=== PATIENT | male | born 1990 | race Caucasian/White ===

== ENCOUNTER 2024-10-13 21:44 | Emergency (ER) | payer SELFPAY ==
[2024-10-13 21:46] VITALS: BP 131/84
[2024-10-13 22:03] LABS: Urine Albumin Trace (Neg - Trace); Urine Bilirubin Negative (Negative); Urine Character Clear (Clear); Urine Color Yellow; Urine Glucose Negative (Negative); Urine Ketone Trace (Negative); Urine Leukocyte Trace (Negative); Urine Nitrite Negative (Negative); Urine Occult Blood Negative (Negative); Urine Specific Gravity 1.025 (<1.030); Urine Urobilinogen Negative (Neg - 1+)
[2024-10-13 22:12] LABS: Urine Red Blood Cell 0-2 /HPF (0-2); Urine Squamous Cell 0-2 /LPF (Few); Urine White Cell 16-20 /HPF (0-5)
--- NOTE | 2024-10-13 23:19 | ED.GENMED ---
History of Present Illness
General
Chief Complaint: Male Genito-Urinary Symptoms
Source: patient
Time Seen by Provider: 10/13/24 22:26
History of Present Illness
History of Present Illness:
34-year-old male presents the emergency room complaining of pain in his testicles. The pain is bilateral. Began a couple hours ago. He is denies any dysuria or frequency. Denies any penile discharge. Patient thinks it is 'unlikely' that he
would be exposed to a sexually transmitted disease.
Past History
Past History
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
ED Past Surgical History: None
Social History
Tobacco: Smoker
Alcohol: Occasional
Drug: Marijuana
Personal: Single
Living: with family
Employment: Employed
Family History
Family History: Other (Noncontributory)
Phy Exam
Physical Exam
Physical Exam:
General: Awake, Alert, Oriented X3. No acute distress.
Vitals: unremarkable
Head: Atraumatic
Eyes: Pupils equal, EOMI
Throat: Airway intact, no exudates
Neck: Trachea midline
Abd: Soft, Nontender, No pulsatile mass
Genitalia: Normal male genitalia. Testicles mildly tender bilaterally
Neuro: Nonfocal
Skin: Warm, dry, no rash
Extremities: pulses equal b/l, no edema
Course
Orders/Labs/Results
Orders:
Orders
10/13/24 21:53
Urinalysis Reflex To Culture Urgent
Date Specimen was Collected: 10/13/24
Time Specimen was Collected: 21:50
Urine Microscopic Reflex Cult Urgent
Urine Culture Urgent
ARLIN Source: U
Specimen Description:
Date Specimen was Collected: 10/13/24
Time Specimen was Collected: 21:50
10/13/24 23:02
Add On- LAB Urgent
Tests Added?: urine gc/chlamydia pcr
10/13/24 23:03
Ceftriaxone Sodium [Rocephin] 500 mg IM NOW STA
Abnormal Lab Results
10/13/24
21:53
Urine Ketones Trace A
(Negative)
Leukocyte Esterase Rfl Trace A
(Negative)
Urine WBC (Reflex) 16-20 A /HPF
(0-5)
Vital Signs
Initial and Last Documented VS:
Initial Vital Signs
Temp Pulse Resp BP Pulse Ox
98.1 F 69 16 131/84 100
10/13/24 21:46 10/13/24 21:46 10/13/24 21:46 10/13/24 21:46 10/13/24 21:46
Last Documented Vital Signs
Temp Pulse Resp BP Pulse Ox
98.1 F 73 16 121/81 97
10/13/24 21:46 10/13/24 23:25 10/13/24 23:25 10/13/24 23:25 10/13/24 23:25
MDM/Problems Addressed
Differential Diagnosis Includes:
Epididymitis, orchitis, urinary tract infection
MDM/Problems Addressed:
Patient's urine is highly suggestive of a genitourinary infection. He denies penile discharge and thinks it is unlikely he has an STD. Will cover for both with a show to Rocephin here and a prescription for Levaquin for 10 days. GC chlamydia
added to urine and lab. Patient's physical exam is not at all consistent with torsion.
*Pulse Oximetry
Patient hypoxic: no
*Critical Care Note
Total Time (30-74mins, 75-104mins- exclusive of procedures): Not Applicable
ED Attending Note
-
Portions of this chart may have been created with voice recognition software.� Occasional wrong word or��sound alike� substitutions may have occurred due to the inherent limitations of voice recognition software.
Discharge Plan
Departure
Patient Disposition: Home (Routine Discharge)
Date of Disposition: 10/13/24
Time of Disposition: 23:19
Patient with high blood pressure during this ER visit?: No
Condition: Fair
Discharge Problem:
Epididymo-orchitis, acute
Instructions: Epididymitis and orchitis
Prescriptions:
New
levofloxacin 500 mg tablet
500 mg PO DAILY 10 Days Qty: 10 0RF
No Action
lorazepam 0.5 MG tablet
0.25 mg PO DAILYPRN PRN (Reason: anxiety)
dextroamphetamine-amphetamine [Adderall XR] 30 MG capsule,extended release 24hr
30 mg PO DAILY
Referrals:
Car Bell Jr., MD [Active] -
UNKNOWN - PT DOES,NOT KNOW [Family Provider] -
Interventions
Interventions:
*Risk Screen - Suicide Last Done: 10/13/24 21:46
*General Assessment Last Done: 10/13/24 21:46
*Neglect/Abuse Screening Last Done: 10/13/24 21:46
*ED COVID-19 Vaccine History Last Done: 10/13/24 21:46
*Nursing Disposition Last Done: 10/13/24 23:32
ED-Male Genitourinary Assessment Last Done: 10/13/24 23:25
Discharge Date and Time
Discharge Date/Time: 10/13/24 23:32
Print Language: SOMALI
[2024-10-13 23:25] VITALS: BP 121/81
[2024-10-13] MEDS: ROCEPHIN 500 MG IM (23:28)
== END 2024-10-13 23:32 | disposition home or self-care (01) ==
LOC: EMR 21:44
PROVIDERS: Emergency Medicine; EMERGENCY PHYSICIAN Emergency Medicine
DX: N45.3 Epididymo-orchitis (principal); N50.812 Left testicular pain; N50.811 Right testicular pain; F17.200 Nicotine dependence, unspecified, uncomplicated
CPT/HCPCS: 99284; 96372; 81003; 81015; 87086; 87491; 87591